=== PATIENT | male | born 1965 | race Caucasian/White ===

== ENCOUNTER 2021-08-17 18:24 | Inpatient (IN) | payer OTHER, MEDICARE, MEDICAID ==
[2021-08-17 19:25] LABS: INR-International Normal Ratio 1.1; PTT 29.6 sec (22.9-36.1); Prothrombin Time 14.1 sec (12.0-14.7)
[2021-08-17 19:46] LABS: Bilirubin Negative (Negative); Blood, Urine Negative (Negative); Clarity Clear (Clear); Glucose, Urine (Dipstick) Normal (Negative); Ketone, Urine Negative (Negative); Leukocyte Negative Leu/uL (Negative); Nitrite Negative (Negative); Protein, Urine (Dipstick) Negative (Neg-Trace); Specific Gravity, Urine 1.008 (1.002-1.036); Urobilinogen Normal mg/dL (Less than 2)
[2021-08-17] MEDS ORDERED: Morphine 4 MG/ML VIAL SLOW IVP PRN (20:06)
[2021-08-17 20:13] LABS: #Lymphocytes 0.5 thou/uL (1.20-3.40); #Monocytes 0.6 thou/uL (0.11-0.59); #Neutrophils 6.7 thou/uL (1.40-6.50); %Eosinophils 0.4 % (0.0-10.0); %Lymphocytes 6.3 % (21.0-51.0); %Monocytes 8.1 % (0.0-10.0); %Neutrophils 85.1 % (42.0-75.0); Hemoglobin 13.2 g/dL (14.0-18.0); Mean Corpuscular Hemoglobin 33.2 pg (27.0-31.0); Mean Corpuscular Volume 97.7 fL (78.0-98.0); Mean Platelet Volume 7.5 fL (7.4-10.4); Platelet Count 144 thou/uL (130-400); Red Blood Cell (RBC) Count 3.97 mill/uL (4.70-6.10); White Blood Cell (WBC) Count 7.8 thou/uL (4.8-10.8)
[2021-08-17] MEDS ORDERED: hydrALAZINE 20 MG/ML VIAL SLOW IVP PRN (20:14)
[2021-08-17] MEDS ORDERED: Dextrose 5% in Water 1,000 ML IV PRN (20:14)
[2021-08-17] MEDS ORDERED: Dextrose 50% Abboject 50 ML SYRINGE SLOW IVP PRN (20:14)
[2021-08-17] MEDS ORDERED: Ondansetron PF 4 MG/2 ML Vial IVP PRN (20:15)
[2021-08-17] MEDS ORDERED: D5 1/2 NS w/20 mEq KCL 1,000 ML IV SCH (20:15)
[2021-08-17] MEDS ORDERED: Ondansetron ODT 4 MG TAB SL PRN (20:15)
[2021-08-17] MEDS ORDERED: traMADol HCl 50 MG TAB PO PRN ×2 (20:17)
[2021-08-17] MEDS ORDERED: Cyclobenzaprine 10 MG TAB PO PRN (20:17)
[2021-08-17 20:33] LABS: ALT (SGPT) 15 U/L (8-55); AST (SGOT) 19 U/L (5-34); Albumin 3.6 g/dL (3.5-5.0); Alkaline Phosphatase 76 U/L (40-110); Anion Gap 10 mmol/L (10-20); BUN (Urea Nitrogen) 4 mg/dL (8.4-25.7); Bilirubin, Total 0.9 mg/dL (0.2-1.2); Calc. Creatinine Clearance 0 mL/min (70-130); Calcium 8.6 mg/dL (7.8-10.44); Carbon Dioxide 24 mmol/L (22-29); Chloride 97 mmol/L (98-107); Globulin 2.3 g/dL (2.4-3.5); Glucose 120 mg/dL (70-105); Magnesium 1.7 mg/dL (1.6-2.6); Phosphorus 3.2 mg/dL (2.3-4.7); Potassium 4.3 mmol/L (3.5-5.1); Protein, Total 5.9 g/dL (6.0-8.3); Sodium 127 mmol/L (136-145)
[2021-08-17] MEDS ORDERED: Sodium Chloride 0.9% 1,000 ML IV SCH ×2 (20:45→22:15)
[2021-08-17] MEDS ORDERED: Sodium Phosphate 15 MMOL in Sodium Chloride 0.9% 250 ML 250 ML IVPB SCH (21:00)
[2021-08-17] MEDS ORDERED: Magnesium 2 GM/50 ML 2 GM in Premix Bag 1 BAG IVPB SCH (21:00)
[2021-08-18] MEDS: Famotidine 20 MG TAB PO SCH ×3 (00:35→21:28)
[2021-08-18] MEDS: Senokot S 8.6-50 MG TAB PO SCH ×3 (00:35→21:27)
[2021-08-18 01:30] VITALS: BMI 22.1
[2021-08-18] MEDS: Acetaminophen 500 MG TAB PO SCH ×5 (03:05→21:27)
[2021-08-18 06:57] LABS: #Eosinphils 0.1 thou/uL (0.0-0.7); #Lymphocytes 0.6 thou/uL (1.20-3.40); #Monocytes 0.6 thou/uL (0.11-0.59); #Neutrophils 4.3 thou/uL (1.40-6.50); %Basophils 0.4 % (0.0-1.0); %Eosinophils 1.3 % (0.0-10.0); %Lymphocytes 10.8 % (21.0-51.0); %Monocytes 10.3 % (0.0-10.0); %Neutrophils 77.2 % (42.0-75.0); Hemoglobin 12.7 g/dL (14.0-18.0); Mean Corpuscular HGB CONC 34.6 g/dL (32.0-36.0); Mean Corpuscular Hemoglobin 33.7 pg (27.0-31.0); Mean Corpuscular Volume 97.6 fL (78.0-98.0); Mean Platelet Volume 7.7 fL (7.4-10.4); Platelet Count 133 thou/uL (130-400); Red Blood Cell (RBC) Count 3.76 mill/uL (4.70-6.10); White Blood Cell (WBC) Count 5.6 thou/uL (4.8-10.8)
[2021-08-18 07:10] LABS: Anion Gap 10 mmol/L (10-20); BUN (Urea Nitrogen) 4 mg/dL (8.4-25.7); Calc. Creatinine Clearance 125 mL/min (70-130); Calcium 8.2 mg/dL (7.8-10.44); Carbon Dioxide 22 mmol/L (22-29); Chloride 103 mmol/L (98-107); Glucose 120 mg/dL (70-105); Magnesium 2.2 mg/dL (1.6-2.6); Phosphorus 3.7 mg/dL (2.3-4.7); Potassium 3.9 mmol/L (3.5-5.1); Sodium 131 mmol/L (136-145)
[2021-08-18] MEDS ORDERED: Neomycin-Polymyxin 1 ML AMP ONE (08:39)
[2021-08-18] MEDS ORDERED: HYDROmorphone 0.5 MG/0.5 ML SYRINGE ONE (08:54)
[2021-08-18] MEDS ORDERED: Midazolam HCl 2 mg/2 ml Vial ONE ×2 (08:54→09:10)
[2021-08-18] MEDS ORDERED: Fentanyl 250 MCG/5 ML VIAL ONE (08:54)
[2021-08-18] MEDS ORDERED: ceFAZolin 2 GM/Dextrose 50 ML IVPB ONE (08:55)
[2021-08-18] MEDS ORDERED: Fentanyl 100 MCG/2 ML VIAL ONE ×2 (09:10→10:57)
[2021-08-18] MEDS ORDERED: HYDROmorphone 2 MG/ML VIAL ONE (09:10)
[2021-08-18] MEDS ORDERED: Ondansetron PF 4 MG/2 ML Vial ONE (09:20)
[2021-08-18] MEDS ORDERED: Lidocaine 1% PF 5 ML VIAL ONE (09:20)
[2021-08-18] MEDS ORDERED: Glycopyrrolate 0.2 MG/ML 5 ML SYRINGE ONE (09:20)
[2021-08-18] MEDS ORDERED: PHENYLEPHRINE-NS 100 MCG/ML 10 ML SYRINGE ONE (09:20)
[2021-08-18] MEDS ORDERED: Rocuronium Bromide 10 MG/ML (10ML VIAL) ONE (09:20)
[2021-08-18] MEDS ORDERED: PROPOFOL 200 MG/20 ML VIAL ONE (09:20)
[2021-08-18] MEDS ORDERED: ePHEDrine 50 MG/ML VIAL ONE (09:20)
[2021-08-18] MEDS ORDERED: Dexamethasone 20 MG/5 ML VIAL ONE (09:20)
[2021-08-18] MEDS ORDERED: SUGAMMADEX SODIUM 200 MG/2 ML VIAL ONE (09:56)
[2021-08-18] MEDS ORDERED: Losartan 25 MG TAB PO SCH (10:15)
[2021-08-18] MEDS ORDERED: Fleet Enema 133 ML BOT PR PRN (10:40)
[2021-08-18] MEDS ORDERED: Ondansetron ODT 4 MG TAB PO PRN (10:40)
[2021-08-18] MEDS ORDERED: Cepastat Lozenges 1 LOZ PO PRN (10:40)
[2021-08-18] MEDS ORDERED: Bisacodyl 10 MG SUPP PR PRN (10:40)
[2021-08-18] MEDS ORDERED: Milk Of Magnesia 30 ML UDCUP PO PRN (10:40)
[2021-08-18] MEDS ORDERED: Ondansetron PF 4 MG/2 ML Vial IVP PRN (10:40)
[2021-08-18] MEDS ORDERED: Ketorolac Tromethamine 30 MG/ML VIAL IVP PRN (10:43)
[2021-08-18] MEDS ORDERED: HYDROmorphone 2 MG/ML VIAL SLOW IVP PRN (10:43)
[2021-08-18] MEDS ORDERED: Ondansetron HCl/PF 4 MG/2 ML Vial IVP PRN (10:43)
[2021-08-18] MEDS ORDERED: Promethazine HCl 25 MG/ML VIAL IVPB PRN (10:43)
[2021-08-18] MEDS ORDERED: Promethazine HCl 25 MG/ML VIAL IM PRN (10:43)
[2021-08-18] MEDS ORDERED: Albuterol Sulfate 2.5 mg/3 ml Neb NEB PRN (12:00)
[2021-08-18] MEDS: Ketorolac Tromethamine 30 MG/ML VIAL IVP SCH ×3 (12:00→23:42)
[2021-08-18] MEDS: Fluticasone Propionate Nasal Spray 16 gm Bottle NASAL SCH ×2 (14:25→23:40)
[2021-08-18] MEDS: Polyethylene Glycol 3350 17 GM Packet PO SCH (14:29)
[2021-08-18] MEDS: Mometasone 100 MCG/PUFF (1 INHALER) INH SCH (18:54)
[2021-08-18] MEDS: ceFAZolin 2 GM/Dextrose 50 ML 2 GM in Premix Bag 1 BAG IVPB SCH (20:25)
[2021-08-18] MEDS: Aspirin 325 MG TAB PO SCH (21:27)
[2021-08-18] MEDS: Atorvastatin Calcium 10 MG TAB PO SCH (21:28)
[2021-08-18] MEDS: Benztropine 1 MG TAB PO SCH (23:39)
[2021-08-18] MEDS: risperiDONE 3 MG TAB PO SCH (23:39)
[2021-08-19] MEDS: ceFAZolin 2 GM/Dextrose 50 ML 2 GM in Premix Bag 1 BAG IVPB SCH (01:42)
[2021-08-19] MEDS: Acetaminophen 500 MG TAB PO SCH ×4 (03:36→22:08)
[2021-08-19] MEDS: Ketorolac Tromethamine 30 MG/ML VIAL IVP SCH ×4 (06:15→23:58)
[2021-08-19] MEDS: Mometasone 100 MCG/PUFF (1 INHALER) INH SCH ×2 (07:15→19:53)
[2021-08-19 07:23] LABS: #Eosinphils 0.1 thou/uL (0.0-0.7); #Lymphocytes 0.7 thou/uL (1.20-3.40); #Monocytes 0.8 thou/uL (0.11-0.59); #Neutrophils 6.1 thou/uL (1.40-6.50); %Basophils 0.4 % (0.0-1.0); %Eosinophils 0.9 % (0.0-10.0); %Lymphocytes 9.4 % (21.0-51.0); %Monocytes 10.5 % (0.0-10.0); %Neutrophils 78.8 % (42.0-75.0); Hemoglobin 12.2 g/dL (14.0-18.0); Mean Corpuscular HGB CONC 33.6 g/dL (32.0-36.0); Mean Corpuscular Hemoglobin 32.9 pg (27.0-31.0); Mean Corpuscular Volume 97.9 fL (78.0-98.0); Mean Platelet Volume 7.8 fL (7.4-10.4); Platelet Count 125 thou/uL (130-400); RBC Distribution Width 12.2 % (11.5-14.5); White Blood Cell (WBC) Count 7.8 thou/uL (4.8-10.8)
[2021-08-19 07:45] LABS: Anion Gap 12 mmol/L (10-20); BUN (Urea Nitrogen) 6 mg/dL (8.4-25.7); Calc. Creatinine Clearance 117 mL/min (70-130); Calcium 8.4 mg/dL (7.8-10.44); Carbon Dioxide 22 mmol/L (22-29); Chloride 97 mmol/L (98-107); Glucose 127 mg/dL (70-105); Phosphorus 3.1 mg/dL (2.3-4.7); Potassium 4.1 mmol/L (3.5-5.1); Sodium 127 mmol/L (136-145)
[2021-08-19] MEDS: Senokot S 8.6-50 MG TAB PO SCH ×2 (11:10→22:09)
[2021-08-19] MEDS: Aspirin 325 MG TAB PO SCH ×2 (11:10→22:08)
[2021-08-19] MEDS: Multivitamin W/ Minerals 1 TAB PO SCH (11:11)
[2021-08-19] MEDS: Losartan 25 MG TAB PO SCH (11:12)
[2021-08-19] MEDS: Famotidine 20 MG TAB PO SCH ×2 (11:12→22:08)
[2021-08-19] MEDS: Polyethylene Glycol 3350 17 GM Packet PO SCH (11:14)
[2021-08-19] MEDS: Fluticasone Propionate Nasal Spray 16 gm Bottle NASAL SCH ×2 (11:15→22:10)
[2021-08-19] MEDS: Ferrous Gluconate 324 MG TAB PO SCH ×2 (11:16→18:07)
[2021-08-19] MEDS: risperiDONE 3 MG TAB PO SCH ×2 (13:45→23:57)
[2021-08-19] MEDS: Benztropine 1 MG TAB PO SCH ×2 (13:45→22:08)
[2021-08-19] MEDS: Atorvastatin Calcium 10 MG TAB PO SCH (22:09)
[2021-08-20] MEDS: Acetaminophen 500 MG TAB PO SCH ×4 (02:58→21:53)
[2021-08-20] MEDS: Ketorolac Tromethamine 30 MG/ML VIAL IVP SCH ×2 (05:44→11:35)
[2021-08-20 06:40] LABS: #Eosinphils 0.3 thou/uL (0.0-0.7); #Lymphocytes 0.7 thou/uL (1.20-3.40); #Monocytes 0.4 thou/uL (0.11-0.59); #Neutrophils 3.3 thou/uL (1.40-6.50); %Basophils 0.8 % (0.0-1.0); %Eosinophils 6.2 % (0.0-10.0); %Monocytes 8.6 % (0.0-10.0); %Neutrophils 69.4 % (42.0-75.0); Hemoglobin 12.7 g/dL (14.0-18.0); Mean Corpuscular HGB CONC 33.5 g/dL (32.0-36.0); Mean Corpuscular Hemoglobin 33.3 pg (27.0-31.0); Mean Corpuscular Volume 99.6 fL (78.0-98.0); Mean Platelet Volume 7.6 fL (7.4-10.4); Platelet Count 127 thou/uL (130-400); RBC Distribution Width 12.3 % (11.5-14.5); Red Blood Cell (RBC) Count 3.81 mill/uL (4.70-6.10); White Blood Cell (WBC) Count 4.7 thou/uL (4.8-10.8)
[2021-08-20 07:11] LABS: Anion Gap 12 mmol/L (10-20); BUN (Urea Nitrogen) 10 mg/dL (8.4-25.7); Calc. Creatinine Clearance 119 mL/min (70-130); Calcium 8.7 mg/dL (7.8-10.44); Carbon Dioxide 24 mmol/L (22-29); Chloride 100 mmol/L (98-107); Glucose 122 mg/dL (70-105); Magnesium 1.9 mg/dL (1.6-2.6); Phosphorus 3.8 mg/dL (2.3-4.7); Potassium 4.2 mmol/L (3.5-5.1); Sodium 132 mmol/L (136-145)
[2021-08-20] MEDS: Multivitamin W/ Minerals 1 TAB PO SCH (09:19)
[2021-08-20] MEDS: Senokot S 8.6-50 MG TAB PO SCH ×2 (09:19→21:54)
[2021-08-20] MEDS: Ferrous Gluconate 324 MG TAB PO SCH ×2 (09:19→17:06)
[2021-08-20] MEDS: Benztropine 1 MG TAB PO SCH ×2 (09:20→21:53)
[2021-08-20] MEDS: Famotidine 20 MG TAB PO SCH ×2 (09:20→21:54)
[2021-08-20] MEDS: Aspirin 325 MG TAB PO SCH ×2 (09:20→21:53)
[2021-08-20] MEDS: Losartan 25 MG TAB PO SCH (09:20)
[2021-08-20] MEDS: Polyethylene Glycol 3350 17 GM Packet PO SCH (09:21)
[2021-08-20] MEDS: risperiDONE 3 MG TAB PO SCH ×2 (09:21→23:33)
[2021-08-20] MEDS: Fluticasone Propionate Nasal Spray 16 gm Bottle NASAL SCH ×2 (09:21→21:54)
[2021-08-20] MEDS: Mometasone 100 MCG/PUFF (1 INHALER) INH SCH ×2 (09:23→18:39)
[2021-08-20] MEDS: Atorvastatin Calcium 10 MG TAB PO SCH (21:53)
[2021-08-20] MEDS ORDERED: risperiDONE 1 MG TAB PO SCH (23:30)
[2021-08-21] MEDS: Acetaminophen 500 MG TAB PO SCH ×4 (03:52→21:05)
[2021-08-21] MEDS: Mometasone 100 MCG/PUFF (1 INHALER) INH SCH ×2 (07:00→19:04)
[2021-08-21] MEDS: Polyethylene Glycol 3350 17 GM Packet PO SCH (09:20)
[2021-08-21] MEDS: Senokot S 8.6-50 MG TAB PO SCH ×2 (09:20→21:05)
[2021-08-21] MEDS: Losartan 25 MG TAB PO SCH (09:21)
[2021-08-21] MEDS: Ferrous Gluconate 324 MG TAB PO SCH ×2 (09:21→18:16)
[2021-08-21] MEDS: Benztropine 1 MG TAB PO SCH ×2 (09:22→21:05)
[2021-08-21] MEDS: Famotidine 20 MG TAB PO SCH ×2 (09:22→21:04)
[2021-08-21] MEDS: Multivitamin W/ Minerals 1 TAB PO SCH (09:22)
[2021-08-21] MEDS: Aspirin 325 MG TAB PO SCH ×2 (09:22→21:04)
[2021-08-21] MEDS: risperiDONE 1 MG TAB PO SCH ×2 (09:22→21:04)
[2021-08-21] MEDS: Fluticasone Propionate Nasal Spray 16 gm Bottle NASAL SCH ×2 (09:23→21:04)
[2021-08-21] MEDS: Atorvastatin Calcium 10 MG TAB PO SCH (21:04)
[2021-08-22] MEDS: Acetaminophen 500 MG TAB PO SCH ×4 (03:20→20:50)
[2021-08-22] MEDS: Losartan 25 MG TAB PO SCH (08:30)
[2021-08-22] MEDS: Multivitamin W/ Minerals 1 TAB PO SCH (08:30)
[2021-08-22] MEDS: Ferrous Gluconate 324 MG TAB PO SCH ×2 (08:31→16:22)
[2021-08-22] MEDS: Famotidine 20 MG TAB PO SCH ×2 (08:31→20:51)
[2021-08-22] MEDS: Senokot S 8.6-50 MG TAB PO SCH ×2 (08:31→20:53)
[2021-08-22] MEDS: risperiDONE 1 MG TAB PO SCH ×2 (08:31→20:51)
[2021-08-22] MEDS: Polyethylene Glycol 3350 17 GM Packet PO SCH (08:32)
[2021-08-22] MEDS: Fluticasone Propionate Nasal Spray 16 gm Bottle NASAL SCH ×2 (08:32→20:49)
[2021-08-22] MEDS: Aspirin 325 MG TAB PO SCH ×2 (08:32→20:50)
[2021-08-22] MEDS: Benztropine 1 MG TAB PO SCH ×2 (09:49→20:51)
[2021-08-22] MEDS: Mometasone 100 MCG/PUFF (1 INHALER) INH SCH ×2 (10:35→18:52)
[2021-08-22] MEDS: Atorvastatin Calcium 10 MG TAB PO SCH (20:51)
[2021-08-23] MEDS: Acetaminophen 500 MG TAB PO SCH ×2 (03:31→08:25)
[2021-08-23 05:42] LABS: Anion Gap 9 mmol/L (10-20); BUN (Urea Nitrogen) 11 mg/dL (8.4-25.7); Calc. Creatinine Clearance 127 mL/min (70-130); Calcium 8.2 mg/dL (7.8-10.44); Carbon Dioxide 22 mmol/L (22-29); Chloride 99 mmol/L (98-107); Glucose 104 mg/dL (70-105); Magnesium 1.8 mg/dL (1.6-2.6); Phosphorus 3.2 mg/dL (2.3-4.7); Sodium 126 mmol/L (136-145)
[2021-08-23] MEDS: Mometasone 100 MCG/PUFF (1 INHALER) INH SCH (08:09)
[2021-08-23] MEDS: risperiDONE 1 MG TAB PO SCH (08:23)
[2021-08-23] MEDS: Polyethylene Glycol 3350 17 GM Packet PO SCH (08:24)
[2021-08-23] MEDS: Fluticasone Propionate Nasal Spray 16 gm Bottle NASAL SCH (08:25)
[2021-08-23] MEDS: Multivitamin W/ Minerals 1 TAB PO SCH (08:26)
[2021-08-23] MEDS: Losartan 25 MG TAB PO SCH (08:26)
[2021-08-23] MEDS: Senokot S 8.6-50 MG TAB PO SCH (08:26)
[2021-08-23] MEDS: Famotidine 20 MG TAB PO SCH (08:27)
[2021-08-23] MEDS: Ferrous Gluconate 324 MG TAB PO SCH (08:27)
[2021-08-23] MEDS: Aspirin 325 MG TAB PO SCH (08:27)
[2021-08-23] MEDS ORDERED: Senokot S 8.6-50 MG TAB PO PRN (08:43)
[2021-08-23] MEDS ORDERED: Sodium Chloride 1 GM TAB PO SCH ×2 (09:00→14:00)
[2021-08-23 09:07] VITALS: TEMP 98.7
[2021-08-23] MEDS: Benztropine 1 MG TAB PO SCH (09:07)
[2021-08-23 12:34] VITALS: BP 138/76
== END 2021-08-23 13:20 | DRG 481 ==
LOC: ERS 18:24 → SJJU 20:14
PROVIDERS: ADMIT Specialist; ATTEND Specialist
PROC: 0QH734Z Insertion of Internal Fixation Device into Left Upper Femur, Percutaneous Approach (ICD-10-PCS; principal; 2021-08-18)
DX: S72.092A Other fracture of head and neck of left femur, initial encounter for closed fracture (principal); E87.1 Hypo-osmolality and hyponatremia; Z20.822 Contact with and (suspected) exposure to COVID-19; I10 Essential (primary) hypertension; J45.909 Unspecified asthma, uncomplicated; E78.5 Hyperlipidemia, unspecified; F20.9 Schizophrenia, unspecified; W01.0XXA Fall on same level from slipping, tripping and stumbling without subsequent striking against object, initial encounter; Z90.49 Acquired absence of other specified parts of digestive tract; Z88.8 Allergy status to other drugs, medicaments and biological substances; Y92.513 Shop (commercial) as the place of occurrence of the external cause
CPT/HCPCS: 36415; 51702; 71045; 71250; 72170; 76000; 80048; 81003; 83735; 84100; 85025; 85610; 85730; 86850; 86900; 86901; 93005; 94640; C1713; C1769; G0390; J0690; J1100; J1170; J1885; J2250; J2405; J2704; J3010; J3475; J3490; J7050; J7620